=== PATIENT | female | born 1995 | race African-American/Black ===

== ENCOUNTER 2016-08-12 18:52 | Emergency (ER) | payer MEDICAID ==
[~2016-08-12] VITALS: Ht 167.6 cm; Wt 81.0 kg
[~2016-08-12 18:52] MED LIST: ALBU05
[2016-08-12] MEDS ORDERED: KETOROLAC 60MG/2ML VIAL IM ONE (23:45)
[2016-08-13 01:26] VITALS: BP 130/78
== END 2016-08-13 01:28 | disposition home or self-care (01) ==
LOC: ER 18:58
DX: F43.9 Reaction to severe stress, unspecified (principal); R52 Pain, unspecified; J45.909 Unspecified asthma, uncomplicated; F31.9 Bipolar disorder, unspecified; F20.9 Schizophrenia, unspecified; F17.210 Nicotine dependence, cigarettes, uncomplicated
CPT/HCPCS: 71010; 81025; 96372; 99283; J1885; Z7610

== ENCOUNTER 2021-06-24 01:42 | Emergency (ER) | payer MEDICAID ==
[~2021-06-24] VITALS: Ht 157.5 cm; Wt 90.0 kg
[2021-06-24] MEDS ORDERED: TETANUS, DIPHTHERIA, PERTUSSIS VAC/PF 0.5ML (>10YR OLD) IM ONE (02:45)
[2021-06-24] MEDS ORDERED: BACITRACIN ZINC OINT UDPKT TOP ONE (02:45)
[2021-06-24] MEDS ORDERED: ACETAMINOPHEN WITH CODEINE 300/30MG TABLET PO ONE (02:45)
[2021-06-24] MEDS ORDERED: BO1 TP (04:41)
[2021-06-24] MEDS ORDERED: AMOX-424 MT (04:41)
[2021-06-24 04:45] VITALS: BP 125/69
[2021-06-24] MEDS ORDERED: ALBU6.7H9 INH (05:13)
== END 2021-06-24 05:45 | disposition home or self-care (01) ==
LOC: ER 02:17
DX: S00.81XA Abrasion of other part of head, initial encounter (principal); S60.418A Abrasion of other finger, initial encounter; J45.909 Unspecified asthma, uncomplicated; F12.10 Cannabis abuse, uncomplicated; F17.210 Nicotine dependence, cigarettes, uncomplicated; Y00.XXXA Assault by blunt object, initial encounter; Y93.89 Activity, other specified; Y92.488 Other paved roadways as the place of occurrence of the external cause
CPT/HCPCS: 70450; 70486; 73130; 81025; 90471; 90715; 99284; Z7610

== ENCOUNTER 2021-08-26 23:29 | Emergency (ER) | payer MEDICAID ==
[~2021-08-26] VITALS: Ht 157.5 cm; Wt 85.7 kg
[~2021-08-26 23:29] MED LIST changes: +ALBU6.7H9 INH; +AMOX-424 MT; +BO1 TP
[2021-08-27] MEDS ORDERED: ONDANSETRON HCL 4MG/2ML INJ IV STA (00:02)
[2021-08-27] MEDS ORDERED: SODIUM CHLORIDE 0.9% 1,000 ML IV ONE (00:15)
[2021-08-27] MEDS ORDERED: AZITHROMYCIN 500 MG TABLET PO ONE (00:15)
[2021-08-27] MEDS ORDERED: CEFTRIAXONE SODIUM 500 MG/VIAL IM ONE (00:15)
[2021-08-27 00:16] LABS: BASOPHILS % 0.9 % (0.0-2.0); EOSINOPHILS % 3.2 % (0.0-5.0); HEMATOCRIT. 37.7 % (36.0-48.0); HEMOGLOBIN. 12.9 g/dL (12.0-16.0); MEAN CORPUSCULAR HEMOGLOBIN 32.2 pg (28.0-32.0); MEAN CORPUSCULAR VOLUME 94.1 fL (81.0-99.0); MEAN PLATELET VOLUME 10.5 fl (7.4-10.4); MONOCYTES % 5.7 % (2.0-8.0); NEUTROPHILS % 69.2 % (40.0-76.0); PLATELET 143 x1000/uL (130-400); RED BLOOD CELL COUNT 4.01 mill/uL (4.2-5.4); RED CELL DISTRIBUTION WIDTH 15.3 % (11.6-14.6)
[2021-08-27 00:32] LABS: CLARITY URINE CLEAR (CLEAR); COLOR URINE YELLOW (YELLOW); KETONES URINE NEGATIVE (NEGATIVE); LEUKOCYTE ESTERASE URINE NEGATIVE (NEGATIVE); NITRITE URINE NEGATIVE (NEGATIVE); OCCULT BLOOD URINE 2+ (NEGATIVE); PH URINE 6.5 (4.5-8.0); PROTEIN URINE TRACE (NEGATIVE); SPECIFIC GRAVITY URINE 1.026 (1.005-1.030); UROBILINOGEN URINE 0.2 E.U./dL (0.2-1.0)
[2021-08-27 00:37] LABS: CHLORIDE 104 mEq/L (98-107)
[2021-08-27] MEDS ORDERED: KETOROLAC 15MG/ML VIAL IV SCH (01:45)
[2021-08-27 02:50] VITALS: BP 131/68
== END 2021-08-27 02:52 | disposition home or self-care (01) ==
LOC: ER 23:29
DX: K52.9 Noninfective gastroenteritis and colitis, unspecified (principal); A64 Unspecified sexually transmitted disease; J45.909 Unspecified asthma, uncomplicated; F12.10 Cannabis abuse, uncomplicated; Z79.899 Other long term (current) drug therapy
CPT/HCPCS: 36415; 80053; 81003; 81025; 83690; 85025; 96361; 96372; 96374; 96375; 99284; J0696; J1885; J2405; J7030